=== PATIENT | female | born 1990 | race African-American/Black ===

== ENCOUNTER 2019-04-11 02:31 | Emergency (ER) | payer SELFPAY ==
--- NOTE | 2019-04-11 07:56 | RAD ---
CHEST 1 VIEW: INDICATION: Chest tightness with shortness of breath and history of anxiety. COMPARISON: None. FINDINGS: Lungs are clear. Heart size is normal. No acute osseous abnormality is evident. IMPRESSION: No acute cardiopulmonary abnormality. POS: BH
== END 2019-04-11 04:30 | disposition home or self-care (01) ==
LOC: ERS 02:31
DX: F41.9 Anxiety disorder, unspecified (principal); R07.89 Other chest pain; J45.909 Unspecified asthma, uncomplicated; F17.200 Nicotine dependence, unspecified, uncomplicated
CPT/HCPCS: 71045; 93005